=== PATIENT | male | born 1985 | race African-American/Black ===

== ENCOUNTER 2016-09-07 16:48 | Emergency (ER) | payer OTHER ==
[2016-09-07] MEDS ORDERED: Sodium Chloride 0.9% 100 ML IV ONE (17:25)
[2016-09-07] MEDS: Iopamidol 612 MG/ML 100 ML Bottle IVPUSH ONE ×2 (17:25→18:00)
[2016-09-07 17:39] LABS: CHLORIDE,CL 105 mmol/L (98-107); SODIUM,NA 142 mmol/L (136-145)
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
[2016-09-07] MEDS ORDERED: Iopamidol 612 MG/ML 100 ML Bottle IVPUSH ONE (19:35)
[2016-09-07] MEDS ORDERED: Lidocaine 1% with EPINEPHrine 1:100,000 20 ML MDV INFILT ONE ×2 (19:49→20:27)
[2016-09-07] MEDS ORDERED: HYDROmorphone 1 MG/ML Syringe IVPUSH ONE (20:02)
[2016-09-07] MEDS ORDERED: Diphtheria,Pertussis(Acell),Tetanus Vaccine 0.5 ML Syringe IM ONE (20:28)
[2016-09-07] MEDS ORDERED: Take Home: Acetaminophen/HYDROcodone 325-5 MG, 5 Tab Pack PO ONE (21:28)
[2016-09-08 06:29] VITALS: BP 115/63
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
== END 2016-09-07 21:58 | disposition home or self-care (01) ==
LOC: VM.ED 16:48 → EDBD 16:48 → VM.ED 21:58
DX: S09.90XA Unspecified injury of head, initial encounter (principal); S19.9XXA Unspecified injury of neck, initial encounter; R07.9 Chest pain, unspecified; R10.9 Unspecified abdominal pain; R10.2 Pelvic and perineal pain; V89.2XXA Person injured in unspecified motor-vehicle accident, traffic, initial encounter
CPT/HCPCS: 12006; 36415; 70450; 71260; 72125; 74177; 80053; 85025; 85610; 90471; 90715; 96374; 99285; A9270; J1170; J7050; Q9967